=== PATIENT | male | born 1990 | race African-American/Black ===

== ENCOUNTER 2023-10-31 02:06 | Inpatient (IN) | payer SELFPAY ==
[2023-10-31 03:21] LABS: #Monocytes 1.1 thou/uL (0.11-0.59); %Basophils 0.2 % (0.0-1.0); %Lymphocytes 7.7 % (21.0-51.0); %Monocytes 5.2 % (0.0-10.0); Hematocrit 45.7 % (42.0-52.0); Hemoglobin 15.5 g/dL (14.0-18.0); Mean Corpuscular HGB CONC 33.9 g/dL (32.0-36.0); Mean Corpuscular Hemoglobin 28.9 pg (27.0-31.0); Mean Corpuscular Volume 85.3 fl (78.0-98.0); Mean Platelet Volume 9.9 fL (7.4-10.4); Platelet Count 334 10x3/uL (130-400); RBC Distribution Width 13.6 % (11.5-14.5); Red Blood Cell (RBC) Count 5.36 mill/uL (4.70-6.10); White Blood Cell (WBC) Count 20.9 10x3/uL (4.8-10.8)
[2023-10-31 03:38] LABS: ALT (SGPT) 33 U/L (8-55); AST (SGOT) 29 U/L (5-34); Acetaminophen Less than 10 mcg/mL (10.0-30.0); Albumin 4.6 g/dL (3.5-5.0); Alcohol Less than 10.0 mg/dL (Less than 10); Alkaline Phosphatase 73 U/L (40-110); Anion Gap 19 mmol/L (10-20); BUN (Urea Nitrogen) 18 mg/dL (8.9-20.6); Bilirubin, Total 1.1 mg/dL (0.2-1.2); Calc. Creatinine Clearance 0 mL/min (70-130); Calcium 9.7 mg/dL (7.8-10.44); Carbon Dioxide 21 mmol/L (22-29); Chloride 107 mmol/L (98-107); Estimated GFR 50; Globulin 3.3 g/dL (2.4-3.5); Glucose 78 mg/dL (70-105); Magnesium 2.1 mg/dL (1.6-2.6); Potassium 4.2 mmol/L (3.5-5.1); Protein, Total 7.9 g/dL (6.0-8.3); Salicylate Less than 8.0 mg/dL (15.0-30.0); Sodium 143 mmol/L (136-145)
[2023-10-31 03:45] LABS: Critical Call Chem Troponin I NUR.DB10 @0344; Troponin I 0.414 ng/mL (< 0.028)
[2023-10-31] MEDS ORDERED: Aspirin Chewable 81 MG TAB ONE ×2 (04:22→08:59)
[2023-10-31 05:02] LABS: Amphetamine Detected (NotDetected); Barbiturates Screen Not Detected (NotDetected); Benzodiazepine Screen Not Detected (NotDetected); Cocaine Metabolite Screen Detected (NotDetected); Methadone Not Detected (NotDetected); Methamphetamine Detected (NotDetected); Opiate Screen Not Detected (NotDetected); Oxycodone Screen Not Detected (NotDetected); Phencyclidine (PCP) Not Detected (NotDetected); THC/Cannabinoid Screen Detected (NotDetected); Tricyclic Screen Not Detected (NotDetected)
[2023-10-31] MEDS ORDERED: LORazepam 2 MG/ML SYR.(CARPUJECT) ONE ×2 (06:20→08:57)
[2023-10-31 06:28] LABS: Critical Call Chem Troponin I RESULT DECREASING; Troponin I 0.347 ng/mL (< 0.028)
[2023-10-31] MEDS ORDERED: Enoxaparin 30 MG (0.3 mL) SYRINGE SC SCH (06:45)
[2023-10-31] MEDS ORDERED: Enoxaparin 120 MG/0.8 ML SYRINGE SC SCH ×2 (06:45→21:00)
[2023-10-31] MEDS ORDERED: Nitroglycerin 0.4 MG TAB (25 Tab Bottle) SL PRN (08:32)
[2023-10-31] MEDS ORDERED: Ondansetron PF 4 MG/2 ML Vial IVP PRN (08:32)
[2023-10-31] MEDS ORDERED: Bisacodyl 5 MG TAB PO PRN (08:32)
[2023-10-31] MEDS ORDERED: Lorazepam 2 MG/ML VIAL SLOW IVP PRN (08:52)
[2023-10-31] MEDS ORDERED: Diazepam 5 MG TAB ONE (08:56)
[2023-10-31] MEDS ORDERED: Diazepam 5 MG TAB PO SCH (09:00)
[2023-10-31 09:04] LABS: Critical Call Chem Troponin I @DECREASING; Troponin I 0.344 ng/mL (< 0.028)
[2023-10-31] MEDS: Aspirin Chewable 81 MG TAB PO SCH (09:21)
[2023-10-31] MEDS ORDERED: Haloperidol Lactate 5 MG/ML VIAL ONE (10:00)
[2023-10-31] MEDS ORDERED: Haloperidol Lactate 5 MG/ML VIAL IM SCH (10:00)
[2023-10-31] MEDS ORDERED: diphenhydrAMINE 50 MG/ML VIAL IVP SCH (10:00)
[2023-10-31] MEDS ORDERED: diphenhydrAMINE 50 MG/ML VIAL ONE (10:00)
[2023-10-31] MEDS ORDERED: Diazepam 10 MG/2 ML SYRINGE IVP SCH (10:00)
[2023-10-31] MEDS: Sodium Chloride 0.9% 1,000 ML IV SCH ×3 (10:02→23:27)
[2023-10-31 12:55] VITALS: BMI 42.3
[2023-10-31] MEDS ORDERED: Iopamidol 370 76% 100 ML VIAL ONE (13:16)
[2023-10-31 16:40] LABS: Bacteria/HPF None Seen HPF (None Seen); Bilirubin Negative (Negative); Blood, Urine Negative (Negative); CAUTI Indications for Culture Alt mental st,lethar; Clarity Clear (Clear); Glucose, Urine (Dipstick) Normal (Negative); Ketone, Urine 20 mg/dL (Negative); Leukocyte Negative Leu/uL (Negative); Nitrite Negative (Negative); Protein, Urine (Dipstick) 10 mg/dL (Neg-Trace); RBC/HPF 0-3 HPF (0-3); Specific Gravity, Urine 1.038 (1.002-1.036); Squamous Epithelial None Seen HPF (0-3); Urobilinogen Normal mg/dL (Less than 2); WBC/HPF 0-3 HPF (0-3)
[2023-10-31 16:41] LABS: Sperm/HPF Rare HPF (None Seen); Urine Culture Reflex No No
[2023-10-31] MEDS: Diazepam 5 MG TAB PO SCH (20:28)
[2023-10-31] MEDS: Enoxaparin 80 MG (0.8 mL) SYRINGE SC SCH (21:39)
[2023-11-01 05:29] LABS: #Basophils 0.1 thou/uL (0.0-0.2); #Eosinphils 0.1 thou/uL (0.0-0.7); #Monocytes 0.9 thou/uL (0.11-0.59); #Neutrophils 5.5 thou/uL (1.40-6.50); %Basophils 0.7 % (0.0-1.0); %Eosinophils 0.8 % (0.0-10.0); %Lymphocytes 30.8 % (21.0-51.0); %Monocytes 9.6 % (0.0-10.0); %Neutrophils 57.8 % (42.0-75.0); Hematocrit 41.4 % (42.0-52.0); Hemoglobin 13.7 g/dL (14.0-18.0); Mean Corpuscular HGB CONC 33.1 g/dL (32.0-36.0); Mean Corpuscular Hemoglobin 29.1 pg (27.0-31.0); Mean Corpuscular Volume 87.9 fl (78.0-98.0); Platelet Count 239 10x3/uL (130-400); RBC Distribution Width 13.9 % (11.5-14.5); Red Blood Cell (RBC) Count 4.71 mill/uL (4.70-6.10); White Blood Cell (WBC) Count 9.5 10x3/uL (4.8-10.8)
[2023-11-01 05:54] LABS: Anion Gap 10 mmol/L (10-20); BUN (Urea Nitrogen) 10 mg/dL (8.9-20.6); Calc. Creatinine Clearance 216 mL/min (70-130); Calcium 8.7 mg/dL (7.8-10.44); Carbon Dioxide 26 mmol/L (22-29); Chloride 106 mmol/L (98-107); Estimated GFR 103; Glucose 70 mg/dL (70-105); Potassium 4.2 mmol/L (3.5-5.1); Sodium 138 mmol/L (136-145)
[2023-11-01] MEDS ORDERED: Carvedilol 3.125 MG TAB PO SCH (08:00)
[2023-11-01] MEDS: Enoxaparin 80 MG (0.8 mL) SYRINGE SC SCH ×2 (09:43→19:37)
[2023-11-01] MEDS: Diazepam 5 MG TAB PO SCH ×2 (09:44→19:36)
[2023-11-01] MEDS: Aspirin Chewable 81 MG TAB PO SCH (09:44)
[2023-11-01] MEDS ORDERED: Haloperidol 1 MG TAB PO SCH (10:00)
[2023-11-01] MEDS ORDERED: Famotidine 20 MG TAB PO SCH (10:00)
[2023-11-01] MEDS: Acetaminophen 325 MG TAB PO PRN (10:34)
[2023-11-01 12:16] LABS: CK (CPK) 1710 U/L (30-200)
[2023-11-01] MEDS: Sodium Chloride 0.9% 1,000 ML IV SCH (12:45)
[2023-11-01] MEDS: Famotidine 20 MG TAB PO SCH (19:36)
[2023-11-01] MEDS: Atorvastatin Calcium 40 MG TAB PO SCH (19:36)
[2023-11-01] MEDS: Haloperidol 1 MG TAB PO SCH (19:37)
[2023-11-02] MEDS ORDERED: Haloperidol Lactate 5 MG/ML VIAL ONE (03:10)
[2023-11-02] MEDS ORDERED: Haloperidol Lactate 5 MG/ML VIAL SLOW IVP SCH (03:15)
[2023-11-02 06:17] LABS: Anion Gap 14 mmol/L (10-20); BUN (Urea Nitrogen) 8 mg/dL (8.9-20.6); CK (CPK) 900 U/L (30-200); Calc. Creatinine Clearance 240 mL/min (70-130); Calcium 9.3 mg/dL (7.8-10.44); Carbon Dioxide 25 mmol/L (22-29); Chloride 105 mmol/L (98-107); Estimated GFR 115; Glucose 82 mg/dL (70-105); Sodium 140 mmol/L (136-145)
[2023-11-02] MEDS ORDERED: Losartan 25 MG TAB PO SCH (09:15)
[2023-11-02] MEDS ORDERED: Amlodipine 10 MG TAB PO SCH (09:15)
[2023-11-02] MEDS ORDERED: Amlodipine 5 MG TAB PO SCH ×2 (09:15→09:30)
[2023-11-02] MEDS: Sodium Chloride 0.9% 1,000 ML IV SCH (09:24)
[2023-11-02] MEDS: Enoxaparin 80 MG (0.8 mL) SYRINGE SC SCH ×2 (09:41→20:05)
[2023-11-02] MEDS: Aspirin Chewable 81 MG TAB PO SCH (09:41)
[2023-11-02] MEDS: Acetaminophen 325 MG TAB PO PRN (09:42)
[2023-11-02] MEDS: Haloperidol 1 MG TAB PO SCH ×2 (09:42→20:05)
[2023-11-02] MEDS: Famotidine 20 MG TAB PO SCH ×2 (09:43→20:05)
[2023-11-02] MEDS: Diazepam 5 MG TAB PO SCH (10:56)
[2023-11-02] MEDS ORDERED: carBAMazepine 200 MG TAB PO SCH (12:00)
[2023-11-02] MEDS: Atorvastatin Calcium 40 MG TAB PO SCH (20:05)
[2023-11-03 06:24] LABS: Anion Gap 12 mmol/L (10-20); BUN (Urea Nitrogen) 8 mg/dL (8.9-20.6); Calc. Creatinine Clearance 261 mL/min (70-130); Calcium 9.2 mg/dL (7.8-10.44); Carbon Dioxide 23 mmol/L (22-29); Chloride 107 mmol/L (98-107); Estimated GFR 118; Glucose 86 mg/dL (70-105); Potassium 4.5 mmol/L (3.5-5.1); Sodium 137 mmol/L (136-145)
[2023-11-03 08:43] VITALS: BP 140/78; TEMP 98.6
[2023-11-03] MEDS ORDERED: Amlodipine 5 MG TAB PO SCH ×2 (09:00)
[2023-11-03] MEDS ORDERED: Amlodipine 10 MG TAB PO SCH (09:00)
[2023-11-03] MEDS ORDERED: Losartan 25 MG TAB PO SCH (09:00)
[2023-11-03] MEDS ORDERED: Diazepam 5 MG TAB PO SCH (09:00)
[2023-11-03] MEDS: Acetaminophen 325 MG TAB PO PRN (09:10)
[2023-11-03] MEDS: Aspirin Chewable 81 MG TAB PO SCH (09:11)
[2023-11-03] MEDS: Enoxaparin 80 MG (0.8 mL) SYRINGE SC SCH (09:11)
[2023-11-03] MEDS: Haloperidol 1 MG TAB PO SCH (09:11)
[2023-11-03] MEDS: Famotidine 20 MG TAB PO SCH (09:12)
== END 2023-11-03 13:45 | disposition home or self-care (01) | DRG 917 ==
LOC: ERS 02:06 → ERHOLD 05:42 → 2SW 12:37 → OBSVTOIN 11-01 11:51
PROVIDERS: ADMIT Internal Medicine; ATTEND Family Medicine
DX: T40.5X1A Poisoning by cocaine, accidental (unintentional), initial encounter (principal); I21.4 Non-ST elevation (NSTEMI) myocardial infarction; M62.82 Rhabdomyolysis; Z59.00 Homelessness unspecified; R44.0 Auditory hallucinations; N17.9 Acute kidney failure, unspecified; J45.909 Unspecified asthma, uncomplicated; F17.210 Nicotine dependence, cigarettes, uncomplicated; D72.829 Elevated white blood cell count, unspecified; Y92.9 Unspecified place or not applicable; Z98.890 Other specified postprocedural states
CPT/HCPCS: 36415; 36416; 71045; 71275; 80048; 80053; 80306; 80307; 81001; 82550; 83735; 84443; 84484; 85025; 93005; 93306; 96374; J1200; J1630; J1650; J2060; J7050; Q9967

== ENCOUNTER 2023-12-03 17:40 | Emergency (ER) | payer SELFPAY ==
[2023-12-03] MEDS ORDERED: Lorazepam 1 MG TAB ONE ×2 (18:54→20:09)
== END 2023-12-03 20:13 | disposition home or self-care (01) ==
LOC: ERS 17:40
DX: F41.9 Anxiety disorder, unspecified (principal); R44.0 Auditory hallucinations; I10 Essential (primary) hypertension; F17.290 Nicotine dependence, other tobacco product, uncomplicated; Z55.6 Problems related to health literacy
CPT/HCPCS: 71045; 93005